=== PATIENT | female | born 1995 | race Two or more races ===

== ENCOUNTER 2019-12-15 08:43 | Outpatient (CLI) | payer OTHER ==
[~2019-12-15 08:43] MED LIST: ASMANEX0.24 G1 IH; N
[2019-12-16] MEDS ORDERED: LEXAPRO20 MG PO (10:15)
[2019-12-16] MEDS ORDERED: CLONAZEP PO (10:16)
[2019-12-16] MEDS ORDERED: RESTORIL30 MG PO (10:17)
[2019-12-16] MEDS ORDERED: VITAMIN D (10:17)
[2019-12-16] MEDS ORDERED: FLONASE16 GM (11:34)
== END 2019-12-15 13:03 | disposition home or self-care (01) ==
LOC: LAB 08:43
PROVIDERS: ATTEND Orthopaedic Surgery
DX: U07.1 COVID-19 (principal); Z01.818 Encounter for other preprocedural examination

== ENCOUNTER 2019-12-18 09:33 | Day surgery (SDC) | payer OTHER ==
[~2019-12-18 09:33] MED LIST changes: +CLONAZEP PO; +FLONASE16 GM; +LEXAPRO20 MG PO; +RESTORIL30 MG PO; +VITAMIN D
== END 2019-12-18 16:00 | disposition home or self-care (01) ==
LOC: CIR.AMB 09:33
PROVIDERS: ATTEND Orthopaedic Surgery
DX: M75.111 Incomplete rotator cuff tear or rupture of right shoulder, not specified as traumatic (principal); M24.011 Loose body in right shoulder

== ENCOUNTER 2024-12-27 14:50 | Emergency (ER) | payer OTHER ==
[~2024-12-27] VITALS: Ht 154.9 cm; Wt 77.1 kg
[~2024-12-27 14:50] MED LIST changes: +QUETIAPINE FUMA50 M1 PO
[2024-12-27] MEDS ORDERED: ESTAZOLAM1 MG PO (15:46)
[2024-12-27 15:48] VITALS: BP 111/71; O2SAT 99
[2024-12-27] MEDS ORDERED: KETOROLAC TROMETHAMINE 30 MG VIAL IM STA (17:31)
[2024-12-27] MEDS ORDERED: KETOROLAC TROMETHAMINE 30 MG VIAL ONE (17:37)
== END 2024-12-27 20:41 | disposition home or self-care (01) ==
LOC: ER 14:50
DX: M25.572 Pain in left ankle and joints of left foot (principal); Z91.018 Allergy to other foods
CPT/HCPCS: 73610; 96372; 99283; J1885